=== PATIENT | female | born 1985 | race Caucasian/White ===

== ENCOUNTER 2021-03-04 23:08 | Inpatient (IN) | payer SELFPAY ==
[2021-03-05] MEDS ORDERED: ONDANSETRON 4 MG/2 ML VIAL IVPUSH ONE (01:17)
[2021-03-05] MEDS ORDERED: ACETAMINOPHEN 1000 MG/100 ML VIAL IVPB ONE ×4 (01:17→12:30)
[2021-03-05] MEDS ORDERED: LACTATED RINGERS SOLUTION 1000 ML INFUS.BAG IV ONE (01:17)
[2021-03-05] MEDS ORDERED: ACETAMINOPHEN INJECTION 100 ML IVPB ONE ×3 (03:15→23:19)
[2021-03-05] MEDS ORDERED: ONDANSETRON 4 MG/2 ML VIAL ONE (03:16)
[2021-03-05 05:00] LABS: BASO % 0.2 % (0-2.0); HEMATOCRIT 33.2 % (32.4-45.2); HEMOGLOBIN 10.8 GM/dL (10.7-15.3); MCH 24.3 pg (25.7-33.7); MCHC 32.6 g/dl (32.0-36.0); MEAN CELL VOLUME 74.6 fl (80-96); MEAN PLT VOLUME 8.9 fl (7.5-11.1); MONO % 6.7 % (3.8-10.2); NEUT % 87.1 % (42.8-82.8); PLATELET COUNT 312 10^3/uL (134-434); RBC 4.45 M/mm3 (3.60-5.2); RDW 14.9 % (11.6-15.6)
[2021-03-05] MEDS ORDERED: morphine SULFATE 4 MG/ML VIAL ONE (05:05)
[2021-03-05 05:28] LABS: PH,URINE 6.5 (5.0-8.0); URINE APPEARANCE CLEAR; URINE BILIRUBIN NEGATIVE (NEGATIVE); URINE COLOR YELLOW; URINE GLUCOSE (UA) 1+ (NEGATIVE); URINE KETONE TRACE (NEGATIVE); URINE LEUK ESTERASE NEGATIVE (NEGATIVE); URINE NITRITE NEGATIVE (NEGATIVE); URINE PROTEIN NEGATIVE (NEGATIVE); URINE UROBILINOGEN 0.2 mg/dL (0.2-1.0)
[2021-03-05 05:36] LABS: BLOOD UREA NITROGEN 12.6 mg/dL (7-18)
[2021-03-05 05:37] LABS: CREATININE 0.6 mg/dL (0.55-1.3)
[2021-03-05 05:38] LABS: CALCIUM 8.8 mg/dL (8.5-10.1)
[2021-03-05 05:39] LABS: ALBUMIN 3.9 g/dl (3.4-5.0); BILIRUBIN,TOTAL 1.2 mg/dL (0.2-1)
[2021-03-05] MEDS ORDERED: morphine CARPU-JECT 4 MG/1 ML DISP.SYRIN IVPUSH ONE (05:39)
[2021-03-05] MEDS ORDERED: CEFTRIAXONE 1,000 MG in DEXTROSE 5%-WATER - 50 ML IVPB ONE (06:54)
[2021-03-05 06:56] LABS: INR 1.33 (0.83-1.09); PROTHROMBIN TIME (PATIENT) 15.6 SEC (9.7-13.0)
[2021-03-05 06:59] LABS: ACTIVATED PTT 22.6 SECONDS (25.2-36.5)
[2021-03-05] MEDS ORDERED: SODIUM CHLORIDE 1,000 ML IV SCH ×4 (08:15→22:25)
[2021-03-05] MEDS ORDERED: SODIUM CHLORIDE 0.9% 500 ML INFUS.BAG IV ONE (08:19)
[2021-03-05] MEDS ORDERED: LACTATED RINGERS SOLUTION 1,000 ML/1,000 ML INFUS.BAG IV ONE (09:00)
[2021-03-05] MEDS ORDERED: CEFTRIAXONE 1 GM/50 ML BAG ONE (09:00)
[2021-03-05] MEDS ORDERED: PIPERACILLIN/TAZOB 3.375 GM 3.375 GM in DEXTROSE 5%-WATER - 50 ML IVPB SCH (09:00)
[2021-03-05] MEDS ORDERED: DEXAMETHASONE SOD PHOSPHATE 4 MG/1 ML VIAL ONE (09:03)
[2021-03-05] MEDS ORDERED: PROPOFOL 20 ML ONE (09:03)
[2021-03-05] MEDS ORDERED: LIDOCAINE HCL/PF 2% SDV 5ML VIAL ONE (09:03)
[2021-03-05] MEDS ORDERED: MIDAZOLAM HCL 2 MG/2 ML SINGLE DOSE VIAL ONE (09:03)
[2021-03-05] MEDS ORDERED: ROCURONIUM BROMIDE 50 MG/5 ML SYRINGE ONE (09:03)
[2021-03-05] MEDS ORDERED: CEFAZOLIN 2 GM in DEXTROSE 5%-WATER - 100 ML IVPB SCH (10:00)
[2021-03-05 10:14] LABS: HEMATOCRIT 23.2 % (32.4-45.2); HEMOGLOBIN 7.7 GM/dL (10.7-15.3); MCHC 33.2 g/dl (32.0-36.0); MEAN CELL VOLUME 75.4 fl (80-96); MEAN PLT VOLUME 8.8 fl (7.5-11.1); PLATELET COUNT 155 10^3/uL (134-434); RBC 3.08 M/mm3 (3.60-5.2); RDW 15.3 % (11.6-15.6); WHITE BLOOD COUNT 5.5 K/mm3 (4.0-10.0)
[2021-03-05 10:18] LABS: INR 1.78 (0.83-1.09)
[2021-03-05 10:20] LABS: ACTIVATED PTT 28.1 SECONDS (25.2-36.5)
[2021-03-05] MEDS ORDERED: VASOPRESSIN 40 UNITS/100 ML BAG IV SCH ×2 (10:30→15:45)
[2021-03-05] MEDS ORDERED: BUPIVACAINE HCL/PF 0.5% (5 MG/ML) 30 ML VIAL IJ ONE (10:55)
[2021-03-05 11:00] LABS: URINE APPEARANCE CLEAR; URINE BILIRUBIN NEGATIVE (NEGATIVE); URINE COLOR YELLOW; URINE GLUCOSE (UA) 1+ (NEGATIVE); URINE KETONE NEGATIVE (NEGATIVE)
[2021-03-05 11:01] LABS: EPI CELLS 9.9 /uL (0-25.1); PH,URINE 6.5 (5.0-8.0); URINE BACTERIA 42.1 /uL (0-1359); URINE LEUK ESTERASE NEGATIVE (NEGATIVE); URINE NITRITE NEGATIVE (NEGATIVE); URINE PROTEIN NEGATIVE (NEGATIVE); URINE RBC 9.5 /uL (0-23.9); URINE UROBILINOGEN 0.2 mg/dL (0.2-1.0); URINE WBC 3.3 /uL (0-25.8)
[2021-03-05 11:04] LABS: LACTIC ACID 4.6 mmol/L (0.4-2.0)
[2021-03-05 11:05] LABS: ANION GAP 8 MMOL/L (8-16); BLOOD UREA NITROGEN 11.4 mg/dL (7-18); CALCIUM 6.7 mg/dL (8.5-10.1); CHLORIDE 113 mmol/L (98-107); CO2 21 mmol/L (21-32); GLUCOSE,RANDOM 110 mg/dL (74-106); SODIUM 143 mmol/L (136-145)
[2021-03-05] MEDS ORDERED: NEOSTIGMINE METHYLSULFATE 0.5 MG/ML - 10 ML MDV ONE (11:26)
[2021-03-05] MEDS ORDERED: GLYCOPYRROLATE 0.2 MG/1 ML VIAL ONE (11:27)
[2021-03-05] MEDS ORDERED: KETOROLAC TROMETHAMINE 30 MG/1 ML VIAL ONE (11:30)
[2021-03-05] MEDS ORDERED: KCL 10 MEQ IVPB 10 MEQ/100 ML INFUS.BAG IVPB SCH (12:00)
[2021-03-05] MEDS ORDERED: oxyCODONE HCL 5 MG TABLET PO PRN (12:08)
[2021-03-05 13:35] LABS: HEMATOCRIT 21.5 % (32.4-45.2); HEMOGLOBIN 7.1 GM/dL (10.7-15.3); MCH 24.5 pg (25.7-33.7); MCHC 32.9 g/dl (32.0-36.0); MEAN CELL VOLUME 74.5 fl (80-96); MEAN PLT VOLUME 8.6 fl (7.5-11.1); PLATELET COUNT 144 10^3/uL (134-434); RBC 2.88 M/mm3 (3.60-5.2); RDW 15.1 % (11.6-15.6)
[2021-03-05 14:09] LABS: ANISOCYTOSIS 0; HELMET CELLS 0; HOWELL-JOLLY BODIES 0; MACROCYTOSIS 0; OVALOCYTE 0; PLATELET ESTIMATE NORMAL; ROULEAU 0; SICKELED CELLS 0; TARGET CELLS 0; TEAR DROP CELLS 0; TOXIC GRANULATION 0
[2021-03-05 14:33] LABS: ANION GAP 9 MMOL/L (8-16); CALCIUM 6.7 mg/dL (8.5-10.1); CHLORIDE 112 mmol/L (98-107); CO2 21 mmol/L (21-32); GLUCOSE,RANDOM 103 mg/dL (74-106); SODIUM 142 mmol/L (136-145)
[2021-03-05] MEDS ORDERED: CALCIUM GLUCONATE 10% - 1,000 MG/10 ML VIAL IVPB ONE ×2 (14:34→15:37)
[2021-03-05 15:18] LABS: LACTIC ACID 4.2 mmol/L (0.4-2.0)
[2021-03-05] MEDS ORDERED: ACETAMINOPHEN 500 MG TABLET (FP) PO SCH (16:00)
[2021-03-05] MEDS: KCL 10 MEQ IVPB 10 MEQ/100 ML INFUS.BAG IVPB SCH ×2 (17:06→18:00)
[2021-03-05] MEDS: ACETAMINOPHEN 500 MG TABLET (FP) PO SCH (17:07)
[2021-03-05] MEDS ORDERED: KETOROLAC TROMETHAMINE 30 MG/1 ML VIAL IVPUSH SCH (20:00)
[2021-03-05] MEDS: oxyCODONE HCL 5 MG TABLET PO PRN (21:20)
[2021-03-05] MEDS: MUPIROCIN 2% TOPICAL OINTMENT FOR DECOLONIZATION NS SCH (21:22)
[2021-03-05] MEDS: CHLORHEXIDINE GLUCONATE 4% CLEANSER FOR DECOLONIZATION TP SCH (21:23)
[2021-03-05 21:28] LABS: HEMATOCRIT 27.2 % (32.4-45.2); HEMOGLOBIN 8.9 GM/dL (10.7-15.3); MCH 24.8 pg (25.7-33.7); MCHC 32.7 g/dl (32.0-36.0); MEAN CELL VOLUME 75.8 fl (80-96); MEAN PLT VOLUME 8.6 fl (7.5-11.1); PLATELET COUNT 145 10^3/uL (134-434); RBC 3.59 M/mm3 (3.60-5.2); RDW 16.1 % (11.6-15.6); WHITE BLOOD COUNT 19.7 K/mm3 (4.0-10.0)
[2021-03-05] MEDS: PHENOL 177 ML SPRAY BOTTLE MM PRN (21:47)
[2021-03-05 22:22] LABS: LACTIC ACID 4.4 mmol/L (0.4-2.0)
[2021-03-06] MEDS: ACETAMINOPHEN 500 MG TABLET (FP) PO SCH (00:29)
[2021-03-06] MEDS ORDERED: VASOPRESSIN 40 UNITS/100 ML BAG IV SCH (01:31)
[2021-03-06] MEDS: oxyCODONE HCL 5 MG TABLET PO PRN ×2 (03:16→21:20)
[2021-03-06] MEDS ORDERED: ACETAMINOPHEN 500 MG TABLET (FP) PO PRN (05:36)
[2021-03-06 07:46] LABS: HEMATOCRIT 26.2 % (32.4-45.2); HEMOGLOBIN 8.6 GM/dL (10.7-15.3); MCH 24.6 pg (25.7-33.7); MCHC 32.9 g/dl (32.0-36.0); MEAN CELL VOLUME 74.6 fl (80-96); MEAN PLT VOLUME 8.9 fl (7.5-11.1); PLATELET COUNT 140 10^3/uL (134-434); RBC 3.51 M/mm3 (3.60-5.2); RDW 15.7 % (11.6-15.6)
[2021-03-06] MEDS ORDERED: VANCOMYCIN 1 GM in D5W (PRE-DOCKED) 1,000 MG/250 ML IVPB ONE (08:00)
[2021-03-06 08:48] LABS: ALK PHOS 49 U/L (45-117); ANION GAP 9 MMOL/L (8-16); BILIRUBIN,TOTAL 1.1 mg/dL (0.2-1); CALCIUM 6.5 mg/dL (8.5-10.1); CHLORIDE 118 mmol/L (98-107); CO2 21 mmol/L (21-32); CREATININE 0.7 mg/dL (0.55-1.3); GLUCOSE,RANDOM 98 mg/dL (74-106); MAGNESIUM 1.4 mg/dL (1.8-2.4); PHOSPHOROUS 2.6 mg/dL (2.5-4.9); SGOT/AST 83 U/L (15-37); SGPT/ALT 72 U/L (13-61); SODIUM 147 mmol/L (136-145); TOT PROT 4.6 g/dl (6.4-8.2)
[2021-03-06 09:08] LABS: LACTIC ACID 2.9 mmol/L (0.4-2.0)
[2021-03-06 09:15] LABS: ANISOCYTOSIS 2+; MACROCYTOSIS 0; PLATELET ESTIMATE DECREASED
[2021-03-06] MEDS: MUPIROCIN 2% TOPICAL OINTMENT FOR DECOLONIZATION NS SCH ×2 (09:19→21:19)
[2021-03-06] MEDS ORDERED: MAGNESIUM 2GM/50ML STERILE WATER IVPB IVPB ONE (09:30)
[2021-03-06] MEDS ORDERED: CEFEPIME 2 GM in DEXTROSE 5%-WATER 2 GM/100 ML BAG IVPB SCH (10:00)
[2021-03-06] MEDS ORDERED: HEPARIN NA (PORCINE) 5,000 UNITS/ML 1ML VIAL SQ SCH (10:00)
[2021-03-06] MEDS: CEFEPIME IVPB SCH ×2 (10:56→17:55)
[2021-03-06] MEDS: DEXTROSE 5% IVPB SCH ×2 (10:56→17:55)
[2021-03-06] MEDS: WATER IVPB SCH ×2 (10:56→17:55)
[2021-03-06] MEDS ORDERED: FUROSEMIDE 40 MG/4 ML INJECTABLE VIAL IVPUSH ONE (11:38)
[2021-03-06] MEDS ORDERED: FUROSEMIDE 40 MG/4 ML INJECTABLE VIAL ONE (11:45)
[2021-03-06 12:23] LABS: IRON SERUM 6 ug/dL (50-175); TOTAL IRON BINDING CAPACITY 212 ug/dL (250-450)
[2021-03-06] MEDS ORDERED: ACETAMINOPHEN 1000 MG/100 ML VIAL IVPB PRN (15:37)
[2021-03-06] MEDS ORDERED: PT OWN MED DRAWER 7, Y5N ONE (16:55)
[2021-03-06] MEDS ORDERED: oxyCODONE HCL 5 MG TABLET PO PRN (19:46)
[2021-03-06] MEDS: CHLORHEXIDINE GLUCONATE 4% CLEANSER FOR DECOLONIZATION TP SCH (21:19)
[2021-03-06] MEDS: HEPARIN NA (PORCINE) 5,000 UNITS/ML 1ML VIAL SQ SCH (21:19)
[2021-03-06] MEDS: ACETAMINOPHEN 1000 MG/100 ML VIAL IVPB PRN (22:00)
[2021-03-07] MEDS: DEXTROSE 5% IVPB SCH ×3 (01:17→17:26)
[2021-03-07] MEDS: CEFEPIME IVPB SCH ×3 (01:17→17:26)
[2021-03-07] MEDS: WATER IVPB SCH ×3 (01:17→17:26)
[2021-03-07] MEDS: ACETAMINOPHEN 1000 MG/100 ML VIAL IVPB PRN (06:22)
[2021-03-07 07:21] LABS: HEMATOCRIT 28.7 % (32.4-45.2); HEMOGLOBIN 9.4 GM/dL (10.7-15.3); MCH 24.5 pg (25.7-33.7); MCHC 32.9 g/dl (32.0-36.0); MEAN CELL VOLUME 74.3 fl (80-96); MEAN PLT VOLUME 9.1 fl (7.5-11.1); PLATELET COUNT 166 10^3/uL (134-434); RBC 3.86 M/mm3 (3.60-5.2); RDW 15.9 % (11.6-15.6); WHITE BLOOD COUNT 21.8 K/mm3 (4.0-10.0)
[2021-03-07] MEDS ORDERED: PT OWN MED DRAWER 7, Y5N ONE (08:26)
[2021-03-07 08:56] LABS: ALBUMIN 1.9 g/dl (3.4-5.0); ALK PHOS 78 U/L (45-117); ANION GAP 9 MMOL/L (8-16); BLOOD UREA NITROGEN 11.7 mg/dL (7-18); CHLORIDE 111 mmol/L (98-107); CO2 23 mmol/L (21-32); CREATININE 0.5 mg/dL (0.55-1.3); GLUCOSE,RANDOM 71 mg/dL (74-106); PHOSPHOROUS 1.8 mg/dL (2.5-4.9); SGOT/AST 92 U/L (15-37); SGPT/ALT 114 U/L (13-61); SODIUM 143 mmol/L (136-145); TOT PROT 4.8 g/dl (6.4-8.2)
[2021-03-07] MEDS: HEPARIN NA (PORCINE) 5,000 UNITS/ML 1ML VIAL SQ SCH ×2 (09:02→21:09)
[2021-03-07] MEDS: MUPIROCIN 2% TOPICAL OINTMENT FOR DECOLONIZATION NS SCH ×2 (09:02→21:09)
[2021-03-07] MEDS ORDERED: POTASSIUM CHLORIDE TABS 20 MEQ TABLET.ER (FP) PO ONE ×2 (10:00→16:21)
[2021-03-07] MEDS: KCL 10 MEQ IVPB 10 MEQ/100 ML INFUS.BAG IVPB SCH ×4 (10:33→19:21)
[2021-03-07] MEDS ORDERED: NAPH,MB-DB/K PH,MBDB POWDER PACKET PO ONE ×2 (11:20→17:27)
[2021-03-07] MEDS ORDERED: ONDANSETRON 4 MG/2 ML VIAL IVPUSH ONE (11:23)
[2021-03-07 12:43] VITALS: BMI 24.4
[2021-03-07] MEDS: oxyCODONE HCL 5 MG TABLET PO PRN ×2 (14:45→21:14)
[2021-03-07 16:39] LABS: BLOOD UREA NITROGEN 7.8 mg/dL (7-18); CALCIUM 7.1 mg/dL (8.5-10.1); CREATININE 0.4 mg/dL (0.55-1.3); PHOSPHOROUS 1.4 mg/dL (2.5-4.9)
[2021-03-07] MEDS ORDERED: ACETAMINOPHEN 1000 MG/100 ML VIAL IVPB ONE (16:53)
[2021-03-07] MEDS: CHLORHEXIDINE GLUCONATE 4% CLEANSER FOR DECOLONIZATION TP SCH (21:09)
[2021-03-08] MEDS: PHENOL 177 ML SPRAY BOTTLE MM PRN ×2 (00:20→05:57)
[2021-03-08] MEDS: WATER IVPB SCH ×3 (02:18→20:35)
[2021-03-08] MEDS: CEFEPIME IVPB SCH ×3 (02:18→20:35)
[2021-03-08] MEDS: DEXTROSE 5% IVPB SCH ×3 (02:18→20:35)
[2021-03-08] MEDS: oxyCODONE HCL 5 MG TABLET PO PRN (02:25)
[2021-03-08] MEDS ORDERED: FAMOTIDINE 20 MG/50 ML IVPB 20 MG/50 ML MG IVPB ONE (05:11)
[2021-03-08 07:07] LABS: HEMATOCRIT 29.3 % (32.4-45.2); HEMOGLOBIN 9.7 GM/dL (10.7-15.3); MCH 24.8 pg (25.7-33.7); MCHC 33.2 g/dl (32.0-36.0); MEAN CELL VOLUME 74.6 fl (80-96); MEAN PLT VOLUME 9.1 fl (7.5-11.1); PLATELET COUNT 159 10^3/uL (134-434); RBC 3.92 M/mm3 (3.60-5.2)
[2021-03-08] MEDS ORDERED: ACETAMINOPHEN 325 MG TABLET (FP) PO PRN (08:08)
[2021-03-08 08:30] LABS: ANION GAP 7 MMOL/L (8-16); BLOOD UREA NITROGEN 6.8 mg/dL (7-18); CALCIUM 6.9 mg/dL (8.5-10.1); CHLORIDE 109 mmol/L (98-107); CO2 25 mmol/L (21-32); CREATININE 0.4 mg/dL (0.55-1.3); GLUCOSE,RANDOM 87 mg/dL (74-106); MAGNESIUM 1.9 mg/dL (1.8-2.4); PHOSPHOROUS 1.8 mg/dL (2.5-4.9); SODIUM 141 mmol/L (136-145)
[2021-03-08] MEDS ORDERED: PT OWN MED DRAWER 7, Y5N ONE (09:11)
[2021-03-08] MEDS ORDERED: KCL 10 MEQ IVPB 10 MEQ/100 ML INFUS.BAG IVPB SCH (09:15)
[2021-03-08] MEDS: HEPARIN NA (PORCINE) 5,000 UNITS/ML 1ML VIAL SQ SCH ×3 (09:22→22:54)
[2021-03-08] MEDS: NAPH,MB-DB/K PH,MBDB POWDER PACKET PO SCH ×2 (09:22→22:54)
[2021-03-08] MEDS: MUPIROCIN 2% TOPICAL OINTMENT FOR DECOLONIZATION NS SCH ×2 (10:05→21:36)
[2021-03-08] MEDS ORDERED: POTASSIUM CHLORIDE TABS 20 MEQ TABLET.ER (FP) PO ONE ×3 (10:32→20:00)
[2021-03-08 11:00] LABS: ANISOCYTOSIS 1+; MACROCYTOSIS 0; OVALOCYTE 2+; PLATELET ESTIMATE DECREASED
[2021-03-08] MEDS ORDERED: FUROSEMIDE 20 MG TABLET (FP) PO ONE (11:15)
[2021-03-08] MEDS ORDERED: TRIMETHOBENZAMIDE HCL 200MG/2ML INJ IM ONE (11:15)
[2021-03-08 15:31] LABS: PH,URINE 6.5 (5.0-8.0); URINE APPEARANCE CLEAR; URINE BILIRUBIN NEGATIVE (NEGATIVE); URINE COLOR YELLOW; URINE GLUCOSE (UA) NEGATIVE (NEGATIVE); URINE KETONE TRACE (NEGATIVE); URINE LEUK ESTERASE NEGATIVE (NEGATIVE); URINE NITRITE NEGATIVE (NEGATIVE); URINE PROTEIN NEGATIVE (NEGATIVE); URINE UROBILINOGEN 0.2 mg/dL (0.2-1.0)
[2021-03-08] MEDS ORDERED: PHENOL 177 ML SPRAY BOTTLE MM PRN (16:52)
[2021-03-08 16:56] LABS: TOT PROT 4.8 g/dl (6.4-8.2)
[2021-03-08 16:57] LABS: ALK PHOS 100 U/L (45-117); BILIRUBIN,TOTAL 0.5 mg/dL (0.2-1); SGOT/AST 66 U/L (15-37); SGPT/ALT 100 U/L (13-61)
[2021-03-08 16:58] LABS: BILIRUBIN,DIRECT 0.2 mg/dL (0.0-0.2)
[2021-03-08] MEDS: ACETAMINOPHEN 325 MG TABLET (FP) PO PRN (19:09)
[2021-03-08 20:13] LABS: MAGNESIUM 2.1 mg/dL (1.8-2.4)
[2021-03-08] MEDS: CHLORHEXIDINE GLUCONATE 4% CLEANSER FOR DECOLONIZATION TP SCH (21:36)
[2021-03-08] MEDS ORDERED: PROCHLORPERAZINE INJECTION 10 MG/2 ML VIAL IVPB ONE (22:03)
[2021-03-08] MEDS: FERROUS GLUCONATE 324 MG TAB (FP) PO SCH (22:54)
[2021-03-09] MEDS: WATER IVPB SCH ×3 (02:49→17:51)
[2021-03-09] MEDS: DEXTROSE 5% IVPB SCH ×3 (02:49→17:51)
[2021-03-09] MEDS: CEFEPIME IVPB SCH ×3 (02:49→17:51)
[2021-03-09] MEDS: HEPARIN NA (PORCINE) 5,000 UNITS/ML 1ML VIAL SQ SCH (06:41)
[2021-03-09 08:27] LABS: HEMATOCRIT 32.9 % (32.4-45.2); MCH 24.7 pg (25.7-33.7); MCHC 33.6 g/dl (32.0-36.0); MEAN CELL VOLUME 73.7 fl (80-96); MEAN PLT VOLUME 8.8 fl (7.5-11.1); PLATELET COUNT 164 10^3/uL (134-434); RBC 4.46 M/mm3 (3.60-5.2); RDW 15.6 % (11.6-15.6); WHITE BLOOD COUNT 7.4 K/mm3 (4.0-10.0)
[2021-03-09] MEDS ORDERED: PT OWN MED DRAWER 7, Y5N ONE ×2 (08:38→17:48)
[2021-03-09] MEDS ORDERED: PROCHLORPERAZINE MALEATE 5 MG TABLET PO PRN (08:47)
[2021-03-09 09:04] LABS: ALBUMIN 2.2 g/dl (3.4-5.0); BLOOD UREA NITROGEN 6.6 mg/dL (7-18); CALCIUM 7.9 mg/dL (8.5-10.1)
[2021-03-09 09:07] LABS: PHOSPHOROUS 2.1 mg/dL (2.5-4.9)
[2021-03-09 09:08] LABS: CREATININE 0.4 mg/dL (0.55-1.3)
[2021-03-09 09:09] LABS: BILIRUBIN,TOTAL 0.4 mg/dL (0.2-1); TOT PROT 5.4 g/dl (6.4-8.2)
[2021-03-09] MEDS: MUPIROCIN 2% TOPICAL OINTMENT FOR DECOLONIZATION NS SCH ×2 (09:12→21:56)
[2021-03-09] MEDS ORDERED: POTASSIUM CHLORIDE TABS 20 MEQ TABLET.ER (FP) PO ONE (09:15)
[2021-03-09] MEDS: FERROUS GLUCONATE 324 MG TAB (FP) PO SCH ×2 (09:15→21:51)
[2021-03-09] MEDS ORDERED: NAPH,MB-DB/K PH,MBDB POWDER PACKET PO ONE (09:15)
[2021-03-09 10:26] LABS: ANISOCYTOSIS 0; HELMET CELLS 0; HOWELL-JOLLY BODIES 0; MACROCYTOSIS 0; OVALOCYTE 0; PLATELET ESTIMATE NORMAL; ROULEAU 0; SICKELED CELLS 0; TARGET CELLS 0; TEAR DROP CELLS 0; TOXIC GRANULATION 0
[2021-03-09] MEDS: ACETAMINOPHEN 325 MG TABLET (FP) PO PRN (10:27)
[2021-03-09 17:03] LABS: HIV INTERPRETATION NEGATIVE (NEGATIVE)
[2021-03-09] MEDS ORDERED: FAMOTIDINE 20 MG TABLET PO ONE (17:27)
[2021-03-09] MEDS: oxyCODONE HCL 5 MG TABLET PO PRN (21:50)
[2021-03-09] MEDS: CHLORHEXIDINE GLUCONATE 4% CLEANSER FOR DECOLONIZATION TP SCH (21:52)
[2021-03-10] MEDS ORDERED: PT OWN MED DRAWER 7, Y5N ONE ×3 (02:19→15:20)
[2021-03-10] MEDS: DEXTROSE 5% IVPB SCH ×3 (02:28→17:08)
[2021-03-10] MEDS: WATER IVPB SCH ×3 (02:28→17:08)
[2021-03-10] MEDS: CEFEPIME IVPB SCH ×3 (02:28→17:08)
[2021-03-10 08:26] LABS: HEMATOCRIT 31.2 % (32.4-45.2); HEMOGLOBIN 10.6 GM/dL (10.7-15.3); MCH 24.7 pg (25.7-33.7); MEAN CELL VOLUME 72.7 fl (80-96); MEAN PLT VOLUME 8.9 fl (7.5-11.1); PLATELET COUNT 175 10^3/uL (134-434); RBC 4.29 M/mm3 (3.60-5.2); RDW 16.1 % (11.6-15.6); WHITE BLOOD COUNT 5.3 K/mm3 (4.0-10.0)
[2021-03-10 08:39] LABS: CALCIUM 7.7 mg/dL (8.5-10.1)
[2021-03-10 08:40] LABS: BLOOD UREA NITROGEN 7.6 mg/dL (7-18); MAGNESIUM 2.1 mg/dL (1.8-2.4)
[2021-03-10 08:43] LABS: CREATININE 0.4 mg/dL (0.55-1.3); PHOSPHOROUS 3.5 mg/dL (2.5-4.9)
[2021-03-10] MEDS: ENOXAPARIN NA (PORCINE) 40 MG/0.4 ML DISP.SYRIN SQ SCH (09:54)
[2021-03-10] MEDS: FERROUS GLUCONATE 324 MG TAB (FP) PO SCH ×2 (09:54→22:34)
[2021-03-10 14:27] LABS: ALBUMIN 2.3 g/dl (3.4-5.0)
[2021-03-10 14:30] LABS: BILIRUBIN,DIRECT 0.1 mg/dL (0.0-0.2)
[2021-03-10 14:32] LABS: BILIRUBIN,TOTAL 0.4 mg/dL (0.2-1); TOT PROT 5.7 g/dl (6.4-8.2)
[2021-03-10] MEDS: ACETAMINOPHEN 325 MG TABLET (FP) PO PRN (18:27)
[2021-03-10] MEDS ORDERED: BISMUTH SUBSALICYLATE 524 MG/30 ML PO PRN (22:07)
[2021-03-10] MEDS: oxyCODONE HCL 5 MG TABLET PO PRN (23:20)
[2021-03-11] MEDS ORDERED: MELATONIN 5 MG TABLETS PO PRN (00:39)
[2021-03-11] MEDS: ACETAMINOPHEN 325 MG TABLET (FP) PO PRN (00:56)
[2021-03-11] MEDS ORDERED: PT OWN MED DRAWER 7, Y5N ONE (02:04)
[2021-03-11] MEDS: WATER IVPB SCH ×2 (02:06→13:17)
[2021-03-11] MEDS: DEXTROSE 5% IVPB SCH ×2 (02:06→13:17)
[2021-03-11] MEDS: CEFEPIME IVPB SCH ×2 (02:06→13:17)
[2021-03-11] MEDS ORDERED: traMADol HCL 50 MG TABLET PO PRN (08:59)
[2021-03-11 09:25] LABS: CALCIUM 7.8 mg/dL (8.5-10.1)
[2021-03-11 09:26] LABS: ALBUMIN 2.6 g/dl (3.4-5.0); BLOOD UREA NITROGEN 7.5 mg/dL (7-18)
[2021-03-11 09:29] LABS: CREATININE 0.4 mg/dL (0.55-1.3)
[2021-03-11 09:31] LABS: BILIRUBIN,TOTAL 0.4 mg/dL (0.2-1); TOT PROT 5.9 g/dl (6.4-8.2)
[2021-03-11] MEDS ORDERED: FERRIC CARBOXYMALTOSE 750 MG in SODIUM CHLORIDE 250 ML IVPB ONE (10:00)
[2021-03-11] MEDS: FERROUS GLUCONATE 324 MG TAB (FP) PO SCH (11:30)
[2021-03-11] MEDS: ENOXAPARIN NA (PORCINE) 40 MG/0.4 ML DISP.SYRIN SQ SCH (11:51)
[2021-03-11 13:32] VITALS: BP 105/54; PULSE 74; TEMP 98.9
== END 2021-03-11 20:40 | disposition home or self-care (01) | DRG 710 ==
LOC: JER 23:08 → JERBED 03-05 06:05 → JICU 03-05 16:36 → J7W 03-08 18:18
PROVIDERS: ADMIT Internal Medicine; ATTEND Internal Medicine
PROC: 0DTJ4ZZ Resection of Appendix, Percutaneous Endoscopic Approach (ICD-10-PCS; principal; 2021-03-05 10:00)
DX: A41.9 Sepsis, unspecified organism (principal); R65.21 Severe sepsis with septic shock; J96.01 Acute respiratory failure with hypoxia; I50.31 Acute diastolic (congestive) heart failure; D62 Acute posthemorrhagic anemia; E87.70 Fluid overload, unspecified; E87.2 Acidosis; E86.1 Hypovolemia; K35.80 Unspecified acute appendicitis; D50.9 Iron deficiency anemia, unspecified; R73.9 Hyperglycemia, unspecified; N92.0 Excessive and frequent menstruation with regular cycle; J98.11 Atelectasis; R74.01 Elevation of levels of liver transaminase levels; D25.1 Intramural leiomyoma of uterus
CPT/HCPCS: 36415; 36430; 71045-TC-FY; 71275-TC; 74177-TC; 76830-TC; 80048; 80053; 80076; 81003; 82728; 82962; 83036; 83540; 83550; 83605; 83690; 83735; 83993; 84100; 84703; 85025; 85027; 85610; 85730; 86140; 86900; 86922; 87040; 87045; 87046; 87081; 87086; 87389; 87899; 88304-TC; 93005; 93010; 93306-TC; 94010; 94760; 97116-GP; 97161-GP; 99285-25; C9803; J0131; J1439; J1644; J3490; P9058; Q9967; U0003; U0005